=== PATIENT | female | born 1995 | race Caucasian/White ===

== ENCOUNTER 2017-03-04 13:06 | Emergency (ER) | payer MEDICAID ==
[2017-03-04 13:40] LABS: SPECIFIC GRAVITY 1.015 (1.001-1.030); URINE BILIRUBIN NEGATIVE (NEGATIVE); URINE BLOOD NEGATIVE (NEGATIVE); URINE GLUCOSE (UA) NEGATIVE (NEGATIVE); URINE LEUKOCYTE ESTERASE NEGATIVE (NEGATIVE); URINE NITRITE NEGATIVE (NEGATIVE); URINE PROTEIN NEGATIVE (NEGATIVE); URINE UROBILINOGEN NORMAL (0-1 mg/dl)
[2017-03-04 13:47] LABS: HCG,QUALITATIVE URINE NEGATIVE
[2017-03-04 13:50] LABS: URINE APPEARANCE CLEAR; URINE COLOR YELLOW
[2017-03-06 13:52] LABS: CHLAMYDIA BD Negative (Negative); N.GONORRHOEAE BD Negative (Negative); SOURCE Urine (())
== END 2017-03-04 14:26 | disposition home or self-care (01) ==
LOC: ED 13:06
DX: R50.9 Fever, unspecified (principal); R10.30 Lower abdominal pain, unspecified; Z87.891 Personal history of nicotine dependence